=== PATIENT | female | born 1950 | race Caucasian/White ===

== ENCOUNTER 2023-02-19 06:37 | Day surgery (SDC) | payer MEDICARE, BC ==
[~2023-02-19] VITALS: Ht 167.6 cm; Wt 93.9 kg
[~2023-02-19 06:37] MED LIST: ASPIRIN LOW81 M1 PO; BENAZEPRIL10 M1 PO; CALCARB/D600 MG PO; ESTRACE VAG0.1 MG/GM VA; HYDROCHLOROT25 MG PO; LEVOTHROID112 MCG PO
[2023-02-19 10:48] VITALS: BP 182/83
== END 2023-02-19 09:55 | disposition home or self-care (01) ==
LOC: ENDO 06:37
PROVIDERS: ATTEND Internal Medicine Gastroenterology
PROC: 0DBC8ZX Excision of Ileocecal Valve, Via Natural or Artificial Opening Endoscopic, Diagnostic (ICD-10-PCS; principal; 2023-02-19)
PROC: 0DBL8ZX Excision of Transverse Colon, Via Natural or Artificial Opening Endoscopic, Diagnostic (ICD-10-PCS; 2023-02-19)
DX: Z12.11 Encounter for screening for malignant neoplasm of colon (principal); D12.3 Benign neoplasm of transverse colon; K57.30 Diverticulosis of large intestine without perforation or abscess without bleeding; K64.8 Other hemorrhoids; I10 Essential (primary) hypertension; E03.9 Hypothyroidism, unspecified; E66.9 Obesity, unspecified